=== PATIENT | female | born 1950 | race Caucasian/White ===

== ENCOUNTER 2017-04-14 13:46 | Inpatient (IN) | payer MEDICARE ==
--- NOTE | ~2017-04-14 | CO ---
Unit #: [id number] #: [id number] Patient: CHRIST GOODWIN [id number] [address] [place], [place] [address] [id number] I MR#: [id number] NAME: CHRIST GOODWIN. ROOM: 323 Age: 67 Sex: F Admission Date: 04/14/2017 : 1950 Attending Physician: Roselyn Gr M.D. Primary Care Physician: Dustin Andrew M.D. CONSULTATION REPORT REASON FOR CONSULTATION Renal failure and metabolic acidosis. HISTORY OF PRESENT ILLNESS A 67-year-old female with significant past medical history of breast cancer and received chemotherapy in the past and also history of an irregular heartbeat, today came to the ER with nausea, vomiting, and diarrhea that have been going on for the last few days. Patient was feeling extremely weak and unable to make some urine for the last many hours. He is also having some low-grade fever and chills. Urinalysis is consistent with a UTI. Initial blood pressure was in the 70s. Patient was on Zestril and also two diuretics at home. Since admission, patient has been given IV fluid, and at this time IV fluids are continued. Patient is already feeling better with improvement in the blood pressure. Patient has significant metabolic acidosis (1) which is still present. He also has significant anemia which cause is uncertain but needs further workup. Patient's ultrasound is showing significant chronic kidney disease. PAST MEDICAL HISTORY 1. Carcinoma of the breast treated with chemotherapy and lumpectomy. 2. Irregular heartbeat. 3. Arthritis. PAST SURGICAL HISTORY Left breast mastectomy. HOME MEDICATIONS Reviewed and did include Zestril and triamterene and hydrochlorothiazide. SOCIAL HISTORY No history of smoking or alcohol. FAMILY HISTORY Reviewed. REVIEW OF SYSTEMS Already explained in the History of Present Illness. PHYSICAL EXAMINATION GENERAL: Patient is an elderly female not in acute distress. VITAL SIGNS: Last blood pressure is 112/80, pulse 71, temperature 98, respiratory rate 18, and oxygen saturation 97%. HEENT: Pupils reactive to light. Extraocular movements intact. Mucous Unit #: [id number] #: [id number] Patient: CHRIST GOODWIN membranes are moist. NECK: Supple. No JVD. LUNGS: Bilateral air entry. No wheeze. No crackles. No bronchial breathing. HEART: Regular rate and rhythm. No murmur. No gallop. ABDOMEN: Soft. Bowel sounds are positive. No guarding. No rigidity. EXTREMITIES: No clubbing, cyanosis, or edema. NEUROLOGIC: Grossly nonfocal. VASCULAR: Peripheral pulses are palpable. No palpable lymph nodes. DIAGNOSTIC STUDIES LABORATORY: Creatinine was 4.4 and improved to 2.5, bicarb level is 14, sodium level is 137, potassium 4.7, phosphorus 4.3, and magnesium 2. Hemoglobin is 8.4 and hematocrit 25. Urinalysis is consistent with UTI with some proteinuria. Urine chemistry did show proteinuria of around 500 mg/g. ASSESSMENT AND PLAN 1. Acute kidney injury. The cause of acute kidney injury is likely secondary to patient's hypertension, diarrhea, nausea, and vomiting. Continue IV fluids. Renal functions are improving. Electrolytes are improving. 2. Significant metabolic acidosis. Continue bicarbonate with fluid. Cause of acidosis is likely related to patient's underlying diarrhea which will improve once diarrhea gets better. 3. Anemia. Cause of anemia may be chronic kidney disease, but patient's chronic kidney disease is not that profound that should cause such a significant anemia. May need further workup, maybe GI workup, especially with a (2) workup. 4. Chronic kidney disease. Cause of chronic kidney disease is related to underlying hypertension. May need outpatient followup. Continue IV fluids and repeat labs tomorrow morning. I think renal function will be improved slowly with improvement in her metabolic acidosis. Oral sodium bicarbonate may be need if renal function is not improving. Will repeat the urinalysis again tomorrow morning as patient is significantly acidotic to rule out any renal tubular acidosis. Thank you for letting me evaluate and take care of this patient. Dictated by... Larisa Ashraf TD: 04/15/2017 21:46 JOB #: [id number] Unit #: [id number] #: [id number] Patient: CHRIST GOODWIN CONSULTATION REPORT Page 1 of 1 X Dipak Gupta MD CONSULTATION REPORT
--- NOTE | ~2017-04-14 | HP ---
Unit #: [id number] #: [id number] Patient: CHRIST GOODWIN [id number] [address] [address] [id number] I MR#: [id number] NAME: CHRIST GOODWIN ROOM: 323 Age: 67 Sex: F Admission Date: 04/14/2017 : 1950 Attending Physician: Shasta Moeller M.D. Primary Care Physician: Dustin Andrew M.D. HISTORY AND PHYSICAL CHIEF COMPLAINT Vomiting and diarrhea. HISTORY OF PRESENT ILLNESS The patient is a 67-year-old female with a history of breast cancer, arthritis, and irregular heartbeat, who presented to the emergency room complaining of nausea, vomiting, and diarrhea. The patient stated that patient has had flu-like symptoms for one week associated with nausea and vomiting. The patient also complains of a burning sensation while urinating. The patient was found to be hypotensive with a blood pressure of 72/60 and have a UTI in the emergency room. The patient is being admitted for the above reasons. The patient also complains of a low-grade fever but denies any chills. PAST MEDICAL HISTORY 1. Irregular heartbeat. 2. Breast cancer. 3. Arthritis. PAST SURGICAL HISTORY 1. Left breast mastectomy. 2. Gallbladder surgery. HOME MEDICATIONS 1. Tenormin. 2. Zestril. 3. Triamterene and hydrochlorothiazide. 4. Aspirin. ALLERGIES Sulfa. SOCIAL HISTORY No history of smoking, alcohol, or any illicit drug abuse. FAMILY HISTORY Reviewed and none. REVIEW OF SYSTEMS A 14-point review of systems was performed and only pertinent positive findings are as described above. The remaining are negative. PHYSICAL EXAMINATION GENERAL: Patient is alert, awake, oriented, and not in acute distress. Unit #: [id number] #: [id number] Patient: CHRIST GOODWIN VITAL SIGNS: Temperature 97.7, pulse 64 respiratory rate 18, blood pressure 72/60, and saturating 97% on room air. HEENT: Head atraumatic, normocephalic. Pupils equal, round, and reactive to light and accommodation. Extraocular movements are intact. Dry mucous membranes. NECK: Supple. LUNGS: Decreased air entry at the bases. HEART: Regular rate and rhythm. ABDOMEN: Soft. Positive bowel sounds. EXTREMITIES: No cyanosis, no clubbing. NEUROLOGIC: Alert, awake, and oriented. No gross focal motor deficit. DIAGNOSTIC STUDIES LABORATORY: Glucose 117, BUN 83, creatinine 4.4, sodium 130, potassium 4.8, chloride 104, bicarb 14, calcium 9, AST 19, ALT 17, and alkaline phosphatase 91. Lipase 28. WBC 9, hemoglobin 9.7, hematocrit 29.6, and platelets 497,000. Urinalysis shows 3+ leukocyte esterase, 2+ protein, 2+ blood, 5-10 urine RBCs, and 200-300 urine WBCs. IMAGING: CT of the abdomen and pelvis is negative for acute findings. ASSESSMENT 1. Sepsis. 2. Urinary tract infection. 3. Acute kidney injury. PLAN Admit patient to inpatient with telemetry. Continue with sepsis protocol. Replace fluids per protocol. Will have a Renal consult for acute kidney injury. Repeat the labs again in the morning and will check a renal ultrasound. Further recommendations will follow. Dictated by Larisa Mejia TD: 04/14/2017 19:26 JOB #: [id number] HISTORY AND PHYSICAL Page 1 of 1 X SHASTA MOELLER MD X HISTORY AND PHYSICAL
--- NOTE | ~2017-04-14 | CT4 ---
[facility] A Service of [facility] & [facility] RADIOLOGY TEXT RESULTS PATIENT: CHRIST GOODWIN LOCATION: [facility] 323- : 48 UNIT #: [id number] AGE: [address]: Roselyn Gr MD SEX: F ORDER DR: [id number] [facility] [address] [facility]. [place], [place] [address] [id number] I MR#: [id number] Acc #: [id number] NAME: CHRIST GOODWIN. : 1950 SEX: F STUDY DATE/TIME: 04/14/2017 15:32 UNIT: A U ROOM: 323 STUDY DESCRIPTION: CT Abd and Pelv Wo Cont Attending Physician: Jack Moeller M.D. Ordering Physician: Chaim Granados M.D. Primary Care Physician: Dustin Andrew M.D. MEDICAL IMAGING REPORT This report is preliminary unless electronic signature is present EXAM CT abdomen and pelvis, 04/14/2017 HISTORY Irregular heartbeat, arthritis, hypertension, nausea vomiting diarrhea for 4 days. Low blood pressure. UTI x1 week. Prior left breast mastectomy for breast cancer. Prior cholecystectomy. Irregular heartbeat, arthritis, hypertension. TECHNIQUE This CT exam was performed with one or more of the following radiation dose reduction techniques: automatic exposure control, adjustment of mA and/or kV according to patient size, and iterative reconstruction. CT abdomen and pelvis performed without administration of oral or intravascular contrast. No prior studies for comparison. FINDINGS A 4-5 mm noncalcified nodule anterolateral left lower lobe. Dependent scarring or atelectasis at the lung bases. Inferior heart and pericardium unremarkable. Ill-defined zone of hypodensity in the left hepatic lobe measuring about 2.7 cm x 1.4 cm. I do not see architectural distortion. This may simply be an area of fatty infiltration. In the absence of prior studies, best further evaluated with multiphase contrast-enhanced MRI or CT. The patient is status post cholecystectomy. There is mild central biliary tree prominence with the extrahepatic duct measuring up to 16 mm in diameter. No obstructing process. This is likely physiologic in nature and related to the prior cholecystectomy. 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 Adrenal glands unremarkable. No renal calculi or obstruction. No perinephric inflammatory change. Exophytic 1.2- 1.3 cm cyst lower pole right kidney. No perinephric fluid or inflammatory STS. [facility] A Service of [facility] RADIOLOGY TEXT RESULTS PATIENT: CHRIST GOODWIN LOCATION: [facility] 323-01 : 48 UNIT #: [id number] AGE: [address]: Roselyn Gr MD SEX: F ORDER DR: change. No ureteral or bladder calculi. CT Pelvis: No inguinal adenopathy. Urinary bladder unremarkable. Uterus and adnexal regions remarkable. No pelvic or retroperitoneal adenopathy. Small hiatal hernia. Remainder of visualized distal esophagus and stomach unremarkable. Small bowel shows a small duodenal diverticulum medial aspect second portion of duodenum. It contains air. Remainder of visualized small bowel unremarkable. Appendix normal. Colon shows uncomplicated sigmoid diverticulosis. Atherosclerotic arterial calcifications. No aneurysm. Degenerative changes in the spine. No acute-appearing bony abnormality. Indeterminate 1-cm nodule in the left paracentral omentum likely a small lymph node. Given the absence of other prominent nodes, I favor this is benign in nature. IMPRESSION 1. No clearly acute abnormality seen in the abdomen or pelvis. 2. There is a zone of hypointensity in the left hepatic lobe measuring 2.7 cm x 1.4 cm. Given patient's history, it is likely she has undergone prior cross-sectional imaging. Comparison with prior studies recommended. If not clarified by comparison to prior studies, the findings best fully characterized with multiphase contrast-enhanced MRI or CT. 3. There is a 4-5 mm noncalcified nodule left lower lobe toward the base. Again comparison with prior studies recommended. In the absence of prior studies for comparison. Given the patient's history, a 3-6-month CT followup would be recommended. 4. Status post cholecystectomy. Mild central biliary ductal prominence. Extrahepatic common duct measures 16 mm in diameter with no obstructing process seen. Probably physiologic in nature and related to prior cholecystectomy. If further biliary imaging as clinically warranted, consider MRCP versus ERCP. 5. Uncomplicated sigmoid diverticulosis. 6. No acute renal findings. Exophytic 1.2-1.3 cm cyst lower pole right kidney. 7. Appendix normal. 8. Indeterminate soft tissue density ovoid nodule left paracentral omentum measuring about 1 cm in maximum diameter. Comparison with prior studies recommended. Probably a small lymph node. Attention at followup recommended. 9. Degenerative changes in the spine. No aggressive bony lesion suggested. 10. Small to moderate hiatal hernia. Dictated by... Gerard Her M.D. [facility]. [facility] A Service of [facility] RADIOLOGY TEXT RESULTS PATIENT: CHRIST GOODWIN LOCATION: [facility] 323- : 48 UNIT #: [id number] AGE: [address]: Roselyn Gr MD SEX: F ORDER DR: THIS IS AN ELECTRONICALLY VERIFIED REPORT Gerard Her M.D. at 04/15/2017 5:58 PM Aye TD: 04/14/2017 22:01 JOB #: [id number] MEDICAL IMAGING REPORT Page 1 of 1 COPY
--- NOTE | ~2017-04-14 | DS ---
Unit #: [id number] #: [id number] Patient: CHRIST GOODWIN [id number] [address] [address] [id number] I MR#: [id number] NAME: CHRIST GOODWIN. ROOM: 323 Age: 67 Sex: F Admission Date: 04/14/2017 : 1950 Discharge Date: 04/17/2017 Attending Physician: Roselyn Gr M.D. Primary Care Physician: Dustin Andrew M.D. DISCHARGE SUMMARY DISCHARGE DIAGNOSES 1. Acute kidney injury. 2. Chronic kidney disease stage 3. 3. Rule out paraproteinemia. 4. Anemia, likely iron deficiency. 5. Diarrhea, likely acute viral. Clostridium difficile negative. 6. Urinary tract infection. Culture is negative. 7. Sepsis, resolved. 8. Metabolic acidosis. CONSULTATIONS Dr. Gupta. PROCEDURES None. DIAGNOSTIC TESTING LAB DATA: Creatinine 1.5. Hemoglobin 8.2. C. diff. negative. iron 153. Blood culture is negative. Urine culture is negative. IMAGING: Ultrasound of the kidneys negative. ALLERGIES Sulfa. DISCHARGE MEDICATIONS 1. Tenormin 50 p.o. daily. 2. Ferrous gluconate 324 p.o. b.i.d. 3. Aspirin 81 daily. HOSPITALIZATION COURSE A 67 year old admitted because of diarrhea. Sepsis from urinary tract infection. Resolved. Urinary tract infection. Culture is negative. Patient received IV Rocephin. Acute kidney injury with chronic kidney disease stage 3 with proteinuria. Patient was seen by Dr. Gupta. Patient received fluids. Creatinine is stable. Diarrhea. Likely acute viral. C. diff. negative. Patient received IV fluids. Currently resolved. Unit #: [id number] #: [id number] Patient: CHRIST GOODWIN Anemia, iron deficiency. Iron has been started. Metabolic acidosis secondary to acute kidney injury. Patient received IV fluids and IV bicarb. Currently stable. DISCHARGE PLAN 1. The patient will be discharged home. 2. Follow with family physician in 1 week. 3. Follow with renal clinic in 4-[address] Gupta. Dictated by... Roselyn Gr M.D. JADIEL/nelson TD: 04/17/2017 16:00 JOB #: [id number] DISCHARGE SUMMARY Page 1 of 1 X Roselyn Gr MD DISCHARGE SUMMARY
--- NOTE | ~2017-04-14 | US77 ---
[facility] A Service of [facility] RADIOLOGY TEXT RESULTS PATIENT: CHRIST GOODWIN LOCATION: [facility] 323-01 : 48 UNIT #: [id number] AGE: [address]: Roselyn Gr MD SEX: F ORDER DR: [id number] [facility] [address] [facility] [place], [place] [address] [id number] I MR#: [id number] Acc #: [id number] NAME: CHRIST GOODWIN. : 1950 SEX: F STUDY DATE/TIME: 04/14/2017 19:10 UNIT: A [facility] ROOM: [facility] STUDY DESCRIPTION: US Kidney Bilateral Complete Attending Physician: Jack Moeller M.D. Ordering Physician: Ed Doctor [id number] [facility] Primary Care Physician: Dustin Andrew M.D. MEDICAL IMAGING REPORT This report is preliminary unless electronic signature is present EXAM Renal ultrasound 04/14/2017 19:10 INDICATION Acute renal insufficiency. Low GFR of 9.6. Elevated creatinine of 4.4. FINDINGS Sonographic evaluation is performed of the kidneys in multiple planes. Comparison made with CT abdomen from 04/14/2017. Right kidney measures 7.5 cm in cijc-mh-qczf length. It contains a 1.5 cm cyst. The left kidney measures 9.7 cm in ibsx-wv-hayy length. Both kidneys are nonobstructed. Both kidneys are echogenic compatible with medical renal disease. Urinary bladder is poorly distended but is grossly normal. IMPRESSION 1. Nonobstructed echogenic kidneys compatible with medical renal disease. 2. Small right renal cyst. Dictated by... Rasta Vela Jr., M.D. THIS IS AN ELECTRONICALLY VERIFIED REPORT Rasta Vela Jr., M.D. at 04/15/2017 7:37 AM ABHAY/sahil TD: 04/15/2017 05:57 JOB #: [id number] MEDICAL IMAGING REPORT [facility] A Service of [facility] RADIOLOGY TEXT RESULTS PATIENT: CHRIST GOODWIN LOCATION: [facility] 323-01 : 48 UNIT #: [id number] AGE: [address]: Roselyn Gr MD SEX: F ORDER DR: Page 1 of 1 COPY
--- NOTE | ~2017-04-14 | A ---
[facility] Nutrition Therapy DATE: 04/15/17 Patient: CHRIST OGODWIN Physician: LOLITA Address: [address] [place] [address] Room/Bed: [address] [place] [address], Zip: [place] [address] Admit Date: 04/14/17 Date of : [birth year] Height: 5 6 Weight: 153 69.4 NUTRITIONAL ASSESSMENT: REASON: 67 YO FEMALE 2 PT NUTRITION SCREEN FOR WEIGHT LOSS PMH: BREAST CANCER, ARTHRITIS, IRREGULAR HEARTBEAT, GB SURGERY Anthropometrics: HT: 5'6" WT: 153# (61.3 KG) BMI: 24.6 Labs: CL-: 112 BUN: 69 CREAT: 2.8 ALB: 2.9 GFR: 16.8 Meds: TERORMIN, PNU-IMUNE SYRINGE I/O & Bowel function: 360/600 LAST BM 04/14 Skin Integrity: NORMAL. EDEMA: NONE Estimated Nutrition Needs: Assessment: CHART REVIEWED, EVENTS NOTED. 67 YO FEMALE ADMITTED FOR N/V/D, LOW BP, UTI, DALI. NUTRITION SCREEN FOR 2 POINTS RELATED TO 13# WEIGHT LOSS. PT HAS BEEN PLACED ON RENAL DIET DUE TO DALI. RD SPOKE TO THE PT AT BEDSIDE. PT REPORTS HAVING A STOMACH VIRUS SINCE LAST THURSDAY. PT REPORTS EATING BREAKFAST, EATING 50% OF BOWL OF OATMEAL, 1 PC TOAST, AND DRINKING A CUP OF HOT TEA. PT REPORTS EATING A BOWL OF [place]ONI AND CHEESE FOR LUNCH, 2 BITES OF APPLE CRISP, AND HAVING DECAF TEA. PT STATES SHE IS "NOT A BIG EATER" AND HER APPETITE HAS NOT DECREASED. PT STATES SHE DID EXPERIENCE DIARRHEA AFTER EATING. RD GATHERED INFORMATION FROM PT REGARDING 13# WEIGHT LOSS THAT WAS INDICATED IN [employer]. PT REPORTS UBW OF 158-160#, INDICATING A WEIGHT LOSS OF ONLY ABOUT 5#. RD GATHERED INFORMATION FROM PATIENT ABOUT KIDNEY HISTORY ON ACCOUNT OF PT BEING ON RENAL DIET. CURRENT ADMISSION IS THE ONLY HISTORY OF DALI FOR THIS PT. RD OFFERED TO ORDER PT SUPPLEMENTS, BUT PT DECLINED. PT HAS NO DIET QUESTIONS AT THIS TIME. Dx: UNPLANNED WEIGHT LOSS RT CLINICAL CONDITION, NAUSEA, VOMITING, DIARRHEA AEB PT REPORTED WEIGHT LOSS (~5# WT LOSS SUSPECTED). Intervention: 1. LIBERALIZE RENAL DIET Monitoring, Evaluation and Goals: 1. ORAL INTAKE; CONSUME >50% OF MEALS WITHOUT N/V/D 2. LABS; BUN, CL-, CREAT, ALB, GFR 3. WEIGHT; PROMOTE FURTHER UNINTENTIONAL WEIGHT LOSS [facility] Nutrition Therapy DATE: 04/15/17 Patient: CHRIST GOODWIN Physician: LOLITA Address: [address] [place] [address] Room/Bed: [address] [place] [address], Zip: [place] [address] Admit Date: 04/14/17 Date of : [birth year] Height: 5 6 Weight: 153 69.4 4. GI; PROMOTE REGULAR BOWEL FUNCTION Recommendations: 1. LIBERALIZE FROM RENAL TO REGULAR DIET IF KIDNEY FUNCTION STABLE AND LABS INDICATE REGULAR KIDNEY FUNCTION. 2. ORDER SUPPLEMENTS IF PT PO DECREASES. ENSURE WOULD BE APPROPRIATE FOR THIS PT. PT IS AT MILD NUTRITIONAL RISK. RD WILL FOLLOW UP PER PROTOCOL. Respectfully, ZAID WATERS RD, LD [employer] [facility] cc: client file
[2017-04-14 14:31] LABS: BASOPHIL# 0.1 X10e3 (0-0.3); BASOPHIL% 0.8 % (0-2.5); EOSINOPHIL# 0.1 X10e3 (0-0.7); EOSINOPHIL% 1.3 % (0.0-7.0); HEMATOCRIT 29.6 % (35.0-45.0); HEMOGLOBIN 9.7 gm/dL (12.0-16.0); LYMPHOCYTE# 1.6 X10e3 (1.0-3.5); LYMPHOCYTE% 17.5 % (17.0-45.0); MEAN CELL VOLUME 90.5 FL (83-96); MEAN CORPUSCULAR HEMOGLOBIN 29.6 PG (28-34); MEAN CORPUSCULAR HGB CONC 32.8 g/dL (30-36); MEAN PLATELET VOLUME 7.2 FL (6.5-11.5); MONOCYTE# 0.8 X10e3 (0-1.0); MONOCYTE% 9.4 % (3.0-12.0); NEUTROPHIL# 6.4 X10e3 (1.5-7.1); PLATELET COUNT 497 X10e3 (140-420); RED BLOOD COUNT 3.27 X10e (3.90-5.30); RED CELL DISTRIBUTION WIDTH 13.3 % (11.0-15.5)
[2017-04-14] MEDS ORDERED: LISINOPRIL PO (14:32)
[2017-04-14] MEDS ORDERED: PATIENT'S PHARMACY (14:32)
[2017-04-14] MEDS ORDERED: ATENOLOL PO (14:32)
[2017-04-14] MEDS ORDERED: ASPIRIN81 M2 PO (14:33)
[2017-04-14] MEDS ORDERED: TRIAMTERENE/HCTZ PO (14:33)
[2017-04-14 14:37] LABS: DIFF IND NO
[2017-04-14 14:41] LABS: URINE SOURCE CLEAN CATCH
[2017-04-14 14:48] LABS: URINE APPEARANCE TURBID; URINE BILIRUBIN NEG (NEG); URINE BLOOD 2+ (NEG); URINE COLOR YELLOW; URINE GLUCOSE NEG (NEG); URINE KETONE TRACE (NEG); URINE LEUKOCYTE ESTERASE 3+ (NEG); URINE NITRATE NEG (NEG); URINE PROTEIN 2+ (NEG); URINE SPECIFIC GRAVITY 1.015 (1.003-1.035); URINE UROBILINOGEN 0.2 MG/DL (NEG)
[2017-04-14 14:52] LABS: CULTURE INDICATED? YES; URINE BACTERIA AUWI NEG (NEGATIVE); URINE SQUAMOUS EPITHELIAL CELL OCC /[HPF]; UWBCS1 AUWI 200-300 (0-5)
[2017-04-14 14:56] LABS: ALBUMIN SERUM 3.5 g/dL (3.5-5.0); BILIRUBIN, DIRECT 0.1 mg/dL (0.0-0.2); BILIRUBIN,INDIRECT 0.2 mg/dL (0.0-0.9); BILIRUBIN,TOTAL 0.3 mg/dL (0.2-2.0); BUN/CREATININE RATIO 18.86; CREATININE SERUM 4.4 mg/dL (0.6-1.4); GLOM FILT RATE Estimated 9.6 mL/min (>60); POTASSIUM 4.8 mmol/L (3.5-5.1); PROTEIN TOTAL SERUM 7.7 g/dL (6.0-8.3)
[2017-04-15 05:45] LABS: BASOPHIL# 0.1 X10e3 (0-0.3); BASOPHIL% 1.1 % (0-2.5); EOSINOPHIL# 0.1 X10e3 (0-0.7); EOSINOPHIL% 1.5 % (0.0-7.0); HEMATOCRIT 25.5 % (35.0-45.0); HEMOGLOBIN 8.4 gm/dL (12.0-16.0); LYMPHOCYTE% 26.8 % (17.0-45.0); MEAN CELL VOLUME 90.6 FL (83-96); MEAN CORPUSCULAR HGB CONC 33.2 g/dL (30-36); MEAN PLATELET VOLUME 6.8 FL (6.5-11.5); MONOCYTE# 0.8 X10e3 (0-1.0); MONOCYTE% 10.8 % (3.0-12.0); NEUTROPHIL# 4.5 X10e3 (1.5-7.1); NEUTROPHIL% 59.8 % (40-75); PLATELET COUNT 391 X10e3 (140-420); RED BLOOD COUNT 2.81 X10e (3.90-5.30); RED CELL DISTRIBUTION WIDTH 13.7 % (11.0-15.5); WHITE BLOOD COUNT 7.6 X10e3 (4.0-10.5)
[2017-04-15 05:58] LABS: DIFF IND NO
[2017-04-15 06:32] LABS: ALBUMIN SERUM 2.9 g/dL (3.5-5.0); BILIRUBIN,TOTAL 0.7 mg/dL (0.2-2.0); BUN/CREATININE RATIO 24.64; CALCIUM SERUM 8.4 mg/dL (8.4-10.2); CREATININE SERUM 2.8 mg/dL (0.6-1.4); GLOM FILT RATE Estimated 16.5 mL/min (>60); PHOSPHOROUS 4.3 mg/dL (2.5-4.6); POTASSIUM 4.7 mmol/L (3.5-5.1); PROTEIN TOTAL SERUM 6.2 g/dL (6.0-8.3)
[2017-04-15 13:54] LABS: URINE SOURCE CLEAN CATCH
[2017-04-15 13:59] LABS: URINE APPEARANCE CLEAR; URINE BILIRUBIN NEG (NEG); URINE BLOOD TRACE (NEG); URINE COLOR YELLOW; URINE GLUCOSE NEG (NEG); URINE KETONE NEG (NEG); URINE LEUKOCYTE ESTERASE 1+ (NEG); URINE NITRATE NEG (NEG); URINE PROTEIN NEG (NEG); URINE SPECIFIC GRAVITY 1.012 (1.003-1.035); URINE UROBILINOGEN 0.2 MG/DL (NEG)
[2017-04-15 14:02] LABS: URINE BACTERIA AUWI NEG (NEGATIVE); URINE SQUAMOUS EPITHELIAL CELL FEW /[HPF]
[2017-04-16 05:28] LABS: HEMATOCRIT 23.6 % (35.0-45.0); HEMOGLOBIN 7.8 gm/dL (12.0-16.0); MEAN CELL VOLUME 89.3 FL (83-96); MEAN CORPUSCULAR HEMOGLOBIN 29.5 PG (28-34); MEAN PLATELET VOLUME 6.8 FL (6.5-11.5); RED BLOOD COUNT 2.64 X10e (3.90-5.30); RED CELL DISTRIBUTION WIDTH 13.3 % (11.0-15.5); WHITE BLOOD COUNT 6.9 X10e3 (4.0-10.5)
[2017-04-16 06:49] LABS: ALBUMIN SERUM 2.6 g/dL (3.5-5.0); BILIRUBIN,TOTAL 0.8 mg/dL (0.2-2.0); BUN/CREATININE RATIO 26.11; CALCIUM SERUM 8.2 mg/dL (8.4-10.2); CREATININE SERUM 1.8 mg/dL (0.6-1.4); GLOM FILT RATE Estimated 28.2 mL/min (>60); MAGNESIUM 1.8 mg/dL (1.6-3.0); PHOSPHOROUS 3.7 mg/dL (2.5-4.6); POTASSIUM 4.5 mmol/L (3.5-5.1); PROTEIN TOTAL SERUM 5.5 g/dL (6.0-8.3)
[2017-04-17 07:34] LABS: HEMATOCRIT 25.2 % (35.0-45.0); HEMOGLOBIN 8.2 gm/dL (12.0-16.0); MEAN CELL VOLUME 90.1 FL (83-96); MEAN CORPUSCULAR HEMOGLOBIN 29.4 PG (28-34); MEAN CORPUSCULAR HGB CONC 32.6 g/dL (30-36); MEAN PLATELET VOLUME 6.9 FL (6.5-11.5); RED BLOOD COUNT 2.8 X10e (3.90-5.30); RED CELL DISTRIBUTION WIDTH 13.5 % (11.0-15.5); WHITE BLOOD COUNT 8.9 X10e3 (4.0-10.5)
[2017-04-17 08:06] LABS: BUN/CREATININE RATIO 16.66; CALCIUM SERUM 8.5 mg/dL (8.4-10.2); CREATININE SERUM 1.5 mg/dL (0.6-1.4); GLOM FILT RATE Estimated 35.2 mL/min (>60); POTASSIUM 4.4 mmol/L (3.5-5.1)
[2017-04-17] MEDS ORDERED: FERROUS GLUCON324 M1 PO (15:15)
[2017-04-17] MEDS ORDERED: TENORMIN50 MG PO (15:16)
[2017-04-19 04:53] LABS: SPE A1GLOB (PNL) 0.4 g/dL (0.2-0.3); SPE A2GLOB (PNL) 0.9 g/dL (0.5-0.9); SPE ALB (PNL) 2.6 g/dL (3.8-4.8); SPE BETA 1 GLOBULIN 0.4 g/dL (0.4-0.6); SPE BETA 2 GLOBULIN 0.4 g/dL (0.2-0.5); SPE GAMMA (PNL) 0.9 g/dL (0.8-1.7); SPETP (PNL) 5.6 g/dL (6.1-8.1)
== END 2017-04-17 15:33 | disposition home or self-care (01) | DRG 872 ==
LOC: CED 13:46 → CEDOF 17:33 → CED 18:01 → C3A PCU 18:38 → CEDOF 18:38 → C3A PCU 04-15 07:31
PROVIDERS: Emergency Medicine; Family Medicine; Internal Medicine; Internal Medicine Nephrology
DX: A41.9 Sepsis, unspecified organism (principal); N17.9 Acute kidney failure, unspecified; E87.2 Acidosis; E44.1 Mild protein-calorie malnutrition; N39.0 Urinary tract infection, site not specified; D89.2 Hypergammaglobulinemia, unspecified; I12.9 Hypertensive chronic kidney disease with stage 1 through stage 4 chronic kidney disease, or unspecified chronic kidney disease; N18.3 Chronic kidney disease, stage 3 (moderate); A08.4 Viral intestinal infection, unspecified; D50.9 Iron deficiency anemia, unspecified; R80.9 Proteinuria, unspecified; Z88.2 Allergy status to sulfonamides; Z79.82 Long term (current) use of aspirin; M19.90 Unspecified osteoarthritis, unspecified site; Z68.24 Body mass index [BMI] 24.0-24.9, adult; Z85.3 Personal history of malignant neoplasm of breast; Z92.21 Personal history of antineoplastic chemotherapy; Z90.12 Acquired absence of left breast and nipple
CPT/HCPCS: 74176; 76770; 80048; 80053; 80076; 81003; 82570; 82728; 83540; 83550; 83605; 83690; 83735; 84100; 84156; 84165; 84300; 85025; 85027; 86334; 87040; 87086; 87493; 90732; 94760; 96361; 96365; 96375; 99291; G0009; J0696; J1650; J2405